=== PATIENT | female | born 1955 | race Caucasian/White ===

== ENCOUNTER 2017-08-16 12:33 | Emergency (ER) | payer OTHER ==
[2017-08-16 13:12] LABS: #Eosinphils 0.1 thou/uL (0.0-0.7); #Lymphocytes 1.3 thou/uL (1.20-3.40); #Monocytes 0.3 thou/uL (0.11-0.59); %Basophils 0.2 % (0.0-1.0); %Eosinophils 2.3 % (0.0-10.0); %Monocytes 6.7 % (0.0-10.0); %Neutrophils 63.8 % (42.0-75.0); Hemoglobin 13.2 g/dL (12.0-16.0); Mean Corpuscular HGB CONC 34.3 g/dL (32.0-36.0); Mean Corpuscular Hemoglobin 29.2 pg (27.0-31.0); Mean Platelet Volume 7.8 fL (7.4-10.4); Platelet Count 162 thou/uL (130-400); RBC Distribution Width 12.7 % (11.5-14.5); Red Blood Cell (RBC) Count 4.51 mill/uL (4.20-5.40); White Blood Cell (WBC) Count 4.8 thou/uL (4.8-10.8)
[2017-08-16 13:35] LABS: ALT (SGPT) 13 U/L (8-55); AST (SGOT) 19 U/L (5-34); Albumin 4.1 g/dL (3.4-4.8); Alkaline Phosphatase 98 U/L (40-150); Anion Gap 12 mmol/L (10-20); BUN (Urea Nitrogen) 16 mg/dL (9.8-20.1); Bilirubin, Total 0.7 mg/dL (0.2-1.2); CK (CPK) 25 U/L (29-168); Calc. Creatinine Clearance 0 mL/min (70-130); Calcium 9.2 mg/dL (7.8-10.44); Carbon Dioxide 25 mmol/L (23-31); Chloride 108 mmol/L (98-107); Estimated GFR-MDRD 75; Globulin 2.5 g/dL (2.4-3.5); Glucose 115 mg/dL (80-115); Potassium 4.1 mmol/L (3.5-5.1); Protein, Total 6.6 g/dL (6.0-8.3); Sodium 141 mmol/L (136-145)
[2017-08-16 13:39] LABS: CKMB 0.7 ng/mL (0-6.6); Troponin I Less than 0.010 ng/mL (< 0.028)
--- NOTE | 2017-08-16 13:58 | RAD ---
RADIOGRAPH CHEST 1 VIEW: HISTORY: Chesst pain. COMPARISON: none FINDINGS: There is cardiomegaly. There is no evidence of pulmonary venous congestion, pulmonary edema, or pneum othorax. The lateral costophrenic angles are sharp. There is a small nodular density with irregular margins at the right lower lung field. There is a transversely oriented metallic plate and multiple screws overlying the right medial mid ch est. IMPRESSION: 1. Small patchy nodular density at right base, nonspecific. Recommend follow up. 2. Cardiomegaly without congestive heart failure. 3. Status post open reduction and internal fixation in right side of chest, presumably involving rig ht costochondral and chondrosternal junctions. marko [] POS: GONZALES
== END 2017-08-16 16:12 | disposition home or self-care (01) ==
LOC: ERS 12:33
DX: R00.2 Palpitations (principal); R42 Dizziness and giddiness; F41.9 Anxiety disorder, unspecified; Z79.82 Long term (current) use of aspirin; Z79.899 Other long term (current) drug therapy
CPT/HCPCS: 71045; 80053; 82550; 82553; 83735; 84443; 84484; 85025; 93005; 96360

== ENCOUNTER 2017-11-19 15:36 | Emergency (ER) | payer OTHER ==
[2017-11-19] MEDS ORDERED: Ketorolac Tromethamine 30 MG/ML VIAL ONE (15:54)
--- NOTE | 2017-11-19 16:36 | RAD ---
RIGHT SHOULDER THREE VIEWS: History: Right shoulder pain. FINDINGS/IMPRESSION: No fracture, dislocation, or bony destruction is seen. Post op changes and metallic hardware was seen in the right 6th rib. There are mild degenerative changes in the acromioclavicular joint. POS: RICCARDO
== END 2017-11-19 16:14 | disposition home or self-care (01) ==
LOC: SCSER 15:36
DX: S46.911A Strain of unspecified muscle, fascia and tendon at shoulder and upper arm level, right arm, initial encounter (principal); S50.311A Abrasion of right elbow, initial encounter; F41.9 Anxiety disorder, unspecified; W23.0XXA Caught, crushed, jammed, or pinched between moving objects, initial encounter
CPT/HCPCS: 90471; 96372; J1885

== ENCOUNTER 2018-02-03 10:33 | Outpatient (CLI) | payer OTHER ==
--- NOTE | 2018-02-03 13:24 | BD ---
DEXA BONE DENSITOMETRY: (Dual energy X-ray Absorptiometry) DATE: 02/03/18 HISTORY: 62-year-old postmenopausal white female for baseline, age-related osteoporosis screening examination. Height: 62. Weight 180 lbs. Age of menopause: 58 years. COMPARISON: None available. FINDINGS: The bone mineral density (BMD) is given in grams per square centimeter (g/cm2): LUMBAR SPINE: BMD(g/cm2) T-score Z-score L1: 0.803 -1.27 -0.3 L2: 0.928 -0.9 0.6 L3: 0.865 -2. -0.4 L4: 0.811 -2.3 -0.6 Total: 0.850 -1.8 -0.2 HIP: Femoral neck: 0.659 -1.7 -0.3 Total: 0.882 -0.5 0.6 FRAX WHO Fracture Risk Assessment Tool: 10 Year Fracture Risk * Major osteoporotic fracture: 8.7% Hip fracture: 0.9% Reported Risk Factors: [place](), Neck BMD=0.659, BMI=32.9 * Fracture probability is calculated for an untreated patient. Fracture probability may be lower if the patient has received treatment. IMPRESSION: 1. The mean bone mineral density of the lumbar spine is osteopenic. Fracture risk is increased. 2. The bone mineral density of the femoral neck is osteopenic. Fracture risk is increased. PAUL Ragsdale POS: [facility]
== END 2018-02-03 10:34 | disposition home or self-care (01) ==
LOC: BICMAMMO 10:33
PROVIDERS: ATTEND Obstetrics & Gynecology
DX: Z12.31 Encounter for screening mammogram for malignant neoplasm of breast (principal); Z13.820 Encounter for screening for osteoporosis; M85.89 Other specified disorders of bone density and structure, multiple sites; Z80.3 Family history of malignant neoplasm of breast
CPT/HCPCS: 77063; 77067; 77080

== ENCOUNTER 2020-08-25 15:39 | Emergency (ER) | payer OTHER | END 2020-08-25 16:12 | disposition left against medical advice (07) | LOC: ERS 15:39 | DX: Z53.21 Procedure and treatment not carried out due to patient leaving prior to being seen by health care provider (principal) | CPT/HCPCS: 93005 ==

== ENCOUNTER 2022-03-06 15:50 | Outpatient (CLI) | payer MEDICARE, OTHER | END 2022-03-06 15:51 | disposition home or self-care (01) | LOC: RAD 15:50 | PROVIDERS: ATTEND Family Medicine | DX: R05.2 Subacute cough (principal) | CPT/HCPCS: 71046 ==

== ENCOUNTER 2023-07-11 09:55 | Outpatient (CLI) | payer MEDICARE, OTHER | END 2023-07-11 09:56 | disposition home or self-care (01) | LOC: BICRAD 09:55 | PROVIDERS: ATTEND Family Medicine | DX: M51.16 Intervertebral disc disorders with radiculopathy, lumbar region (principal); M47.26 Other spondylosis with radiculopathy, lumbar region | CPT/HCPCS: 72100 ==